=== PATIENT | female | born 1945 | race Caucasian/White ===

== ENCOUNTER → 2017-02-20 | Outpatient (CLI) | payer MEDICARE, OTHER | END | disposition home or self-care (01) | LOC: CFH 07:45 | PROVIDERS: ATTEND Internal Medicine | DX: Z12.31 Encounter for screening mammogram for malignant neoplasm of breast (principal); E04.2 Nontoxic multinodular goiter; K74.5 Biliary cirrhosis, unspecified | CPT/HCPCS: 76536; 76700; G0202 ==

== ENCOUNTER 2018-11-19 07:08 | Outpatient (CLI) | payer MEDICARE, OTHER | END 2018-11-19 23:59 | disposition home or self-care (01) | LOC: CFH 07:08 | PROVIDERS: ATTEND Internal Medicine | DX: N64.4 Mastodynia (principal) | CPT/HCPCS: 76641; 77066; G0279; 77063 ==

== ENCOUNTER → 2021-03-03 | Outpatient (CLI) | payer MEDICARE | END | disposition home or self-care (01) | LOC: RAD 07:25 → EDSTATUS 08:00 | PROVIDERS: ATTEND Internal Medicine Gastroenterology | DX: Z12.31 Encounter for screening mammogram for malignant neoplasm of breast (principal); K74.3 Primary biliary cirrhosis; M35.00 Sjogren syndrome, unspecified; K75.4 Autoimmune hepatitis; R16.1 Splenomegaly, not elsewhere classified | CPT/HCPCS: 76705; 77063; 77067 ==